=== PATIENT | male | born 1965 | race African-American/Black ===

== ENCOUNTER 2017-03-20 09:13 | Emergency (ER) | payer OTHER ==
[~2017-03-20] VITALS: Ht 185.4 cm; Wt 145.1 kg
[2017-03-20 09:45] VITALS: BP 174/99
[2017-03-20] MEDS ORDERED: DIPHTH,PERTUSS(ACELL),TET TOX 0.5 ML DISP.SYRIN. VAX IM ONE (10:00)
--- NOTE | 2017-03-20 10:01 | PHYS DOC ---
Past Medical History Past Medical History: Hypertension Past Surgical History: No Surgical History Alcohol Use: Occasionally Drug Use: None Adult General Chief Complaint Chief Complaint: LACERATION/AVULSION HPI HPI Patient is a 52 year old medical presents with left medial ankle laceration and left great toe laceration. Patient states he was moving a glass that fell down, broke cutting him. Patient states his tetanus is not up-to-date. Review of Systems Review of Systems Constitutional: Denies fever or chills [] Eyes: Denies change in visual acuity, redness, or eye pain [] Musculoskeletal: Denies back pain or joint pain [] Integument: left medial ankle laceration and left great toe laceration Neurologic: Denies headache, focal weakness or sensory changes [] Endocrine: Denies polyuria or polydipsia [] Current Medications Current Medications Current Medications Medications (Trade) Dose Ordered Sig/Garry Start Time Stop Time Status Last Admin Dose Admin Diphtheria/ Tetanus/Acell Pertussis (Boostrix) 0.5 ml ONCE ONCE 03/20/17 10:00 03/20/17 10:01 DC Allergies Allergies Allergies Coded Allergies Type Severity Reaction Last Updated Verified No Known Drug Allergies 03/20/17 No Physical Exam Physical Exam Constitutional: Well developed, well nourished, no acute distress, non-toxic appearance. [] HENT: Normocephalic, atraumatic, bilateral external ears normal, oropharynx moist, no oral exudates, nose normal. [] Skin: Left medial ankle with a superficial laceration approximately 0.5 cm. It is no obvious tendon involvement. Neurovascular exam normal on the left ankle. Left lateral great toe with a superficial laceration approximately 2 cm long. There is no tendon involvement. Neurovascular exam normal the left great toe. Back: No tenderness, no CVA tenderness. [] Extremities: No tenderness, no cyanosis, no clubbing, ROM intact, no edema. [] Neurologic: Alert and oriented X 3, normal motor function, normal sensory function, no focal deficits noted. [] Psychologic: Affect normal, judgement normal, mood normal. [] Current Patient Data Vital Signs Vital Signs Date Time Temp Pulse Resp B/P (MAP) Pulse Ox O2 Delivery O2 Flow Rate FiO2 03/20/17 09:45 97.7 92 20 99 Room Air 97.7 EKG EKG [] Radiology/Procedures Radiology/Procedures [] Course & Med Decision Making Course & Med Decision Making Pertinent Labs and Imaging studies reviewed. (See chart for details) Patient is in the ED with superficial lacerations of the left great toe and left medial ankle. None of them needed suturing. Tetanus was updated. He was provided wound care instructions as well as return precautions. Dragon Disclaimer Dragon Disclaimer This electronic medical record was generated, in whole or in part, using a voice recognition dictation system. Departure Departure Impression: Primary Impression: Laceration of left ankle Additional Impression: Laceration of left great toe Disposition: HOME, SELF-CARE Condition: STABLE Referrals: NO PCP (PCP) Follow-up with your own doctor in one week Patient Instructions: Laceration Care, Adult Additional Instructions: You were seen for laceration of the left ankle and left great toe. Keep the areas clean and dry. Apply Neosporin to the area twice a day. Follow-up with your own doctor in 1-2 weeks. Monitor the area for signs and symptoms of infection including increased redness warmth or odor drainage from the area and return to the ED if they occur. Problem Qualifiers Primary Impression: Laceration of left ankle Encounter type: initial encounter Qualified Codes: S91.012A - Laceration without foreign body, left ankle, initial encounter Additional Impression: Laceration of left great toe Encounter type: initial encounter Damage to nail status: without damage Foreign body presence: unspecified Qualified Codes: S91.112A - Laceration without foreign body of left great toe without damage to nail, initial encounter BREANN LOWE APRN March 20, 2017 10:01
== END 2017-03-20 10:18 | disposition home or self-care (01) ==
LOC: ER 09:13
DX: S91.012A Laceration without foreign body, left ankle, initial encounter (principal); S91.112A Laceration without foreign body of left great toe without damage to nail, initial encounter; I10 Essential (primary) hypertension; W25.XXXA Contact with sharp glass, initial encounter; Y93.89 Activity, other specified; Y92.89 Other specified places as the place of occurrence of the external cause; Y99.8 Other external cause status
CPT/HCPCS: 90471; 90715; 99283-25

== ENCOUNTER 2017-08-20 14:55 | Emergency (ER) | payer OTHER ==
[~2017-08-20] VITALS: Ht 185.4 cm; Wt 142.9 kg
[2017-08-20 15:58] VITALS: BP 172/99
[2017-08-20] MEDS ORDERED: SULF1TAB24 PO (16:12)
[2017-08-20] MEDS ORDERED: MUPI15CR TP (16:12)
[2017-08-20] MEDS ORDERED: HYDR-971 PO (16:12)
--- NOTE | 2017-08-20 16:13 | PHYS DOC ---
Past Medical History Past Medical History: Hypertension Past Surgical History: No Surgical History Alcohol Use: Occasionally Drug Use: None Adult General Chief Complaint Chief Complaint: WOUND CHECK HPI HPI Patient is a 52 year old male with history of hypertension who presents today complaining of bilateral lower extremity wounds that began 5 days ago from what he believes was an insect bite. Patient states he was seen at urgent care and was started on cephalexin. Patient states he has not noted any improvement of the wound. Patient denies any fever. He has an appointment with his PCP on Wednesday next week. Review of Systems Review of Systems Constitutional: Denies fever or chills [] Musculoskeletal: Denies back pain or joint pain [] Integument: bilateral lower extremity wounds Neurologic: Denies headache, focal weakness or sensory changes [] Allergies Allergies Allergies Coded Allergies Type Severity Reaction Last Updated Verified No Known Drug Allergies 03/20/17 No Physical Exam Physical Exam Constitutional: Well developed, well nourished, no acute distress, non-toxic appearance. [] Skin: Warm, dry, left proximal miguel with an open wound approximately 2 x 2 centimeters with surrounding trace cellulitis, right sheen distal end 2 wounds, 1.5cmX1.5cm and 2X1 cm with surrounding trace cellulitis. +2 bilateral pedal pulses. Back: No tenderness, no CVA tenderness. [] Extremities: No tenderness, no cyanosis, no clubbing, ROM intact, no edema. [] Neurologic: Alert and oriented X 3, normal motor function, normal sensory function, no focal deficits noted. [] Psychologic: Affect normal, judgement normal, mood normal. [] EKG EKG [] Radiology/Procedures Radiology/Procedures [] Course & Med Decision Making Course & Med Decision Making Pertinent Labs and Imaging studies reviewed. (See chart for details) Patient has open wounds to the left lower extremity as well as right lower extremity from a possible insect bite. He was started on cephalexin with no improvement. He was switched to Bactrim and Bactroban ointment. His tetanus is up-to-date. He was instructed to keep the area clean and dry. He was provided return precautions. He has an appointment with his own doctor on Wednesday next week. Dragon Disclaimer Dragon Disclaimer This electronic medical record was generated, in whole or in part, using a voice recognition dictation system. Departure Departure Impression: Primary Impression: Cellulitis of both lower extremities Additional Impression: Infection of anterior lower leg Disposition: HOME, SELF-CARE Condition: STABLE Referrals: NO PCP (PCP) followup with your doctor next week Patient Instructions: Cellulitis, [id number], Wound Infection, [id number] Additional Instructions: You were seen with infection to bilateral lower extremities. We switched you from cephalexin to Bactrim and Bactroban ointment. Ensure you complete the Oral antibiotics. Keep the areas clean and dry. Follow-up with your doctor next week on Wednesday. Come back to the ED at any point symptoms worsen. Scripts Hydrocodone/Apap 5-325 (NORCO 5-325 TABLET) 1 Each Tablet 1-2 TAB PO Q4-6HRS, #20 TAB Prov: BREANN LOWE APRN 08/20/17 Sulfamethoxazole/Trimethoprim (BACTRIM DS TABLET) 1 Each Tablet 1 TAB PO BID, #20 TAB Prov: BREANN LOWE APRN 08/20/17 Mupirocin Calcium (BACTROBAN CREAM) 15 Gm Cream..g. 1 STONEY TP TID, #30 GM Prov: BREANN LOWE APRN 08/20/17 Problem Qualifiers BREANN LOWE APRN Aug 20, 2017 16:13
[2017-08-20] MEDS ORDERED: HYDROcodone/APAP 5/325MG 1 TAB TABLET PO ONE (16:30)
== END 2017-08-20 16:25 | disposition home or self-care (01) ==
LOC: ER 14:55
DX: L03.115 Cellulitis of right lower limb (principal); L03.116 Cellulitis of left lower limb; L08.89 Other specified local infections of the skin and subcutaneous tissue; I10 Essential (primary) hypertension
CPT/HCPCS: 99283

== ENCOUNTER → 2018-07-26 | Day surgery (SDC) | payer OTHER ==
[~2018-07-26] MED LIST: ATOR40TA59 PO; HYDR-971 PO; IV RINGERS,LACTATED 1000ML 1,000 ML IV SCH; LISI-338 PO; MUPI15CR TP; PRAV20TA2 PO; PROPOFOL 60 ML IV ONE; RANI150C PO; SULF1TAB24 PO
--- NOTE | 2018-07-26 10:31 | PDOC1 ---
HISTORY & PHYSICAL H&P Vikas Goodwin [id number] 1965 07/12/2018 02:00 PM 11/15 [facility] OUR PATIENTS COME FIRST [address] [place], [place] [id number] Ph. [phone] Patient: Vikas Goodwin Date of : 1965 Date: 07/12/2018 2:00 PM Visit Type: Consult This 53 year old male presents for Screening colonoscopy. History of Present Illness: 1. Screening colonoscopy No prior screening. Denies risk factors. Pertinent negatives include abdominal pain, change in bowel habits, change in stool caliber, constipation, decreased appetite, diarrhea, melena, nausea, rectal bleeding, vomiting, weight gain and weight loss. Additional information: No family history of colon cancer , No family history of Crohn's/colitis, No NSAID/ASA use and No prior colonoscopy. INTAKE COMMENTS: Intake Comments: patient states he is here for a colon screening PROBLEM LIST: Problem Description Onset Date Chronic Clinical Status Notes GERD 02/15/2017 Y HTN 02/15/2017 Y Varicose veins 02/15/2017 Y Obesity 02/15/2017 Y PAST MEDICAL/SURGICAL HISTORY (Detailed) Disease/disorder Onset Date Management Date Comments GERD Hypertension obesity surgery varicose veins varicose veins Diabetes Elevated lipids Family History (Detailed) Relationship Family Member Name Age at Condition Onset Age Cause of Father Renal disease N Mother Stroke N Social History: (Detailed) Preferred language is Swedish. MARITAL STATUS/FAMILY/SOCIAL SUPPORT Currently unknown. Tobacco use status: Occasional tobacco smoker. Smoking status: Light tobacco smoker. TOBACCO CESSATION INFORMATION Date Counseled By Order Status Description Code Tobacco Cessation Information 02/12/2017 Tee Telles Tobacco cessation counseling completed Tobacco cessation counseling TOBACCO/VAPING EXPOSURE There is passive smoke exposure. ALCOHOL There is a history of alcohol use. Type: Beer and liquor. consumed monthly. CAFFEINE The patient uses caffeine: coffee. LIFESTYLE Moderate activity level. Exercise includes walking. The patient reports there are no animals in the home. SLEEP PATTERNS Patient has no changes to sleep patterns. HOME ENVIRONMENT/SAFETY The home has smoke detectors. Carbon monoxide detector at home. Uses seat belts. Medications (active prior to today) Medication Name Sig Description Start Date Stop Date Refilled Rx Elsewhere pravastatin 20 mg tablet take 1 tablet by ORAL route every evening 05/25/2017 07/12/2018 N Silvadene 1 % topical cream apply by TOPICAL route 2 times every day to the affected area 09/14/2017 07/12/2018 N RANITIDINE 300 MG TABLET TAKE 1 TABLET BY ORAL ROUTE EVERY DAY AT BEDTIME 201707/12/2018 07/12/2018 N MAXZIDE 37.5 MG-25 MG TABLET TAKE 1 TABLET BY ORAL ROUTE EVERY DAY 05/05/201805/05/2018 N Medication Reconciliation Medications reconciled today. Medication Reviewed Adherence Medication Name Sig Desc Elsewhere Status taking as directed ranitidine 300 mg tablet TAKE 1 TABLET BY ORAL ROUTE EVERY DAY AT BEDTIME N Verified taking as directed lisinopril 5 mg tablet take 1 tablet by oral route every day N Verified Medications (Added, Continued or Stopped today) Start Date Medication Directions PRN Status PRN Reason Instruction Stop Date 07/12/2018 lisinopril 5 mg tablet take 1 tablet by oral route every day N 05/05/2018 MAXZIDE 37.5 MG-25 MG TABLET TAKE 1 TABLET BY ORAL ROUTE EVERY DAY N 07/12/2018 05/25/2017 pravastatin 20 mg tablet take 1 tablet by ORAL route every evening N 07/12/2018 07/12/2018 ranitidine 300 mg tablet TAKE 1 TABLET BY ORAL ROUTE EVERY DAY AT BEDTIME N 05/05/2018 RANITIDINE 300 MG TABLET TAKE 1 TABLET BY ORAL ROUTE EVERY DAY AT BEDTIME N 07/12/2018 09/14/2017 Silvadene 1 % topical cream apply by TOPICAL route 2 times every day to the affected area N 07/12/2018 Allergies: Ingredient Reaction (Severity) Medication Name Comment NO KNOWN ALLERGIES ORDERS: Status Lab Order Time Frame Comments ordered Referrals: Vascular Surgery. Dr. Dobbs. Location: [place]. Evaluate and treat ordered BMP -today ordered CBC w/diff -today ordered Urinalysis -today ordered Lipid Panel -today ordered Hepatic Function Panel -today ordered Hg A1C -today ordered PSA -today ordered TSH -today ordered Hemoglobin A1c -today ordered BMP -today ordered CBC w/diff -today completed ada diet ordered Hemoglobin A1c -today ordered Microalb/Creat Ratio, Randm Ur -today completed Activity counseling provided completed Smoking cessation counseling provided completed Dietary counseling provided ordered BMP -today ordered CBC w/diff -today ordered Urinalysis -today ordered Lipid Panel -today ordered Hepatic Function Panel -today ordered TSH -today ordered Vitamin D, 25-Hydroxy -today ordered PSA -today completed Avoid provocative foods: citrus, alcohol, coffee, chocolate, mints. completed Eat smaller meals, no eating three hours prior to bedtime. completed Elevate head of bed prior to sleep. ordered Colonoscopy, flexible; diagnostic -today ordered follow-up visit with Jamshid Skelton MD upon completion of work-up upon completion of work-up System Neg/Pos Details Constitutional Negative Chills, Fever, Malaise, Weight gain and Weight loss. ENMT Negative Sore throat. Eyes Negative Double vision. Respiratory Negative Dyspnea and Wheezing. Cardio Negative Chest pain and Irregular heartbeat/palpitations. GI Positive See HPI. GI Negative Abdominal pain, Change in bowel habits, Change in stool caliber, Constipation, Decreased appetite, Diarrhea, Melena, Nausea, See HPI, Rectal bleeding and Vomiting. Negative Dysuria and Hematuria. Endocrine Negative Cold intolerance and Heat intolerance. Psych Negative Anxiety. Integumentary Negative Hives and Rash. MS Negative Joint pain. Miguel/Lymph Negative Easy bleeding and Easy bruising. Allergic/Immuno Negative Food allergies. Vital Signs Time BP mm/Hg Pulse /min Resp /min Temp F Ht ft Ht in Ht cm Wt lb Wt kg BMI kg/ m2 BSA m2 O2 Sat% 1:46 PM 130/80 96 18 98.2 5.0 11.00 180.34 316.80 143.698 44.18 2.68 96 Measured By Time Measured by 1:46 PM Bethany Swygert PHYSICAL EXAM: Exam Findings Details Constitutional Normal Well developed. Eyes Normal Conjunctiva - Right: Normal, Left: Normal. Sclera - Right: Normal, Left: Normal. Nasopharynx Normal Lips/teeth/gums - Normal. Neck Exam Normal Inspection - Normal. Thyroid gland - Normal. Respiratory Normal Inspection - Normal. Auscultation - Normal. Cardiovascular Normal Regular rate and rhythm. No murmurs, gallops, or rubs. Abdomen Normal Inspection - Normal. Anterior palpation - No guarding. No abdominal tenderness. No hepatic enlargement. No spleen enlargement. No hernia. No ascites. Skin Normal Inspection - Normal. Extremity Normal No edema. Psychiatric Normal Orientation - Oriented to time, place, person & situation. Appropriate mood and affect. Assessment/Plan # Detail Type Description 1. Assessment Encounter for screening colonoscopy (Z12.11). Patient Plan schedule colonoscopy at [facility] Plan Orders Further diagnostic evaluations ordered today include(s) Colonoscopy , flexible; diagnostic to be performed today. He is to schedule a follow-up visit with Jamshid Skelton MD upon completion of work-up. Co-Sign Orders Order Ordering Provider Cosigned Name Cosigned Date Cosigner Comments Colonoscopy, flexible; diagnostic Jamshid Skelton 07/12/2018 follow-up visit with Jamshid Skelton MD upon completion of work-up Jamshid Skelton 07/12/2018 Active Patient Care Team Members Name Contact Agency Type Support Role Relationship Active Date Inactive Date Specialty Tee Telles MD Patient provider PCP Family Pract Provider: Costa KLEIN, Jamshid 07/12/2018 2:07 PM Tee Telles MD, Family Practice; Jacob López MD Internal Medicine; Sami Spain MD, Internal Medicine; Angela Skelton MD Internal Medicine; Jamshid Skelton MD, Gastroenterology; Beto Butterfield MD, Rheumatology, J. Stephanie FLYNN ------ 07/26/18 Patient seen and examined. No change in H&P. JAMSHID SKELTON MD Jul 26, 2018 10:31
[2018-07-26 11:43] VITALS: BP 173/93
== END | disposition home or self-care (01) ==
LOC: ENDOS 09:50 → EDSTATUS 11:00
PROVIDERS: ATTEND Internal Medicine Gastroenterology
DX: Z12.11 Encounter for screening for malignant neoplasm of colon (principal); I10 Essential (primary) hypertension; K21.9 Gastro-esophageal reflux disease without esophagitis; E66.9 Obesity, unspecified; E11.9 Type 2 diabetes mellitus without complications; Z82.3 Family history of stroke; Z84.1 Family history of disorders of kidney and ureter; F17.200 Nicotine dependence, unspecified, uncomplicated; Z72.89 Other problems related to lifestyle; Z79.899 Other long term (current) drug therapy; Z79.84 Long term (current) use of oral hypoglycemic drugs
CPT/HCPCS: 45378; J2704

== ENCOUNTER → 2019-07-31 | Outpatient (CLI) | payer SELFPAY ==
[2018-07-26 11:43] VITALS: BP 173/93
[~2019-07-31] MED LIST changes: +HYDR-3164 PO; -HYDR-971 PO; -IV RINGERS,LACTATED 1000ML 1,000 ML IV SCH; -PROPOFOL 60 ML IV ONE
--- NOTE | 2019-07-31 15:33 | CARD ---
MR#: [id number] Date of Study: 07/31/2019 Ordering Physician: BILL RUIZ, Referring Physician: BILL RUIZ, Tech: Flaca Maya [facility] [place] APPROVED REPORT EXAM: Two-dimensional and M-mode echocardiogram with Doppler and color Doppler. Other Information Quality : Technically LimitedHR: 90bpm Rhythm : NSRTechnically limited study due to body habitus. INDICATION Dyspnea 2D DIMENSIONS RVDd3.6 (2.9-3.5cm)Left Atrium(2D)3.6 (1.6-4.0cm) IVSd1.5 (0.7-1.1cm)Aortic Root(2D)3.2 (2.0-3.7cm) LVDd5.4 (3.9-5.9cm)LVOT Diameter2.4 (1.8-2.4cm) PWd1.3 (0.7-1.1cm)LVDs3.4 (2.5-4.0cm) FS (%) 36.0 %SV90.9 ml LVEF(%)65.1 (>50%) M-Mode DIMENSIONS Left Atrium(MM)3.44 (2.5-4.0cm)IVSd1.48 (0.7-1.1cm) Aortic Root2.98 (2.2-3.7cm)LVDd5.14 (4.0-5.6cm) PWd1.45 (0.7-1.1cm)FS (%) 29 % LVDs3.63 (2.0-3.8cm)ESV(Teich)55.6 ml LVEF(%)56 (>50%) Aortic Valve AoV Peak Bud.138.7cm/sAoV VTI23.5cm AO Peak GR.7.7mmHgLVOT Peak Bud.104.8cm/s AO Mean GR.4mmHgAVA (VMAX)3.28cm2 ELIZABETH (VTI)3.30cm2 Mitral Valve MV E Kdvmdjhu06.0cm/sMV DECEL [id number] MV A Ufcyrtcr24.1cm/sE/A Ratio0.9 Pulmonary Valve PV Peak Pxrqzfns86.4cm/s Tricuspid Valve TR P. Xaqrbfrt255et/sRAP [id number] TR Peak Gr.86tmSwRYIV53ymPs LEFT VENTRICLE The left ventricle is normal size. There is moderate concentric left ventricular hypertrophy. The lef t ventricular systolic function is normal. The Ejection Fraction is 60-65%. There is normal LV segmen jenna wall motion. Transmitral Doppler flow pattern is Grade I-abnormal relaxation pattern. RIGHT VENTRICLE The right ventricle is borderline dilated. There is normal right ventricular wall thickness. The righ t ventricular systolic function is normal. ATRIA The left atrium size is normal. The right atrium size is normal. The interatrial septum is intact wit h no evidence for an atrial septal defect or patent foramen ovale as noted on 2-D or Doppler imaging. AORTIC VALVE The aortic valve is normal in structure and function. The aortic valve is trileaflet. Doppler and Col or Flow revealed no significant aortic regurgitation. There is no significant aortic valvular stenosi s. There is no aortic valvular vegetation. MITRAL VALVE The mitral valve is normal in structure and function. There is no evidence of mitral valve prolapse. There is no mitral valve stenosis. Doppler and Color-flow revealed trace mitral regurgitation. TRICUSPID VALVE The tricuspid valve is normal in structure and function. Doppler and Color Flow revealed trace tricus pid regurgitation. The PA pressure was estimated at 28 mmHg. There is no tricuspid valve prolapse or vegetation. There is no tricuspid valve stenosis. PULMONIC VALVE The pulmonic valve is not well visualized. GREAT VESSELS The aortic root is normal in size. The ascending aorta is normal in size. The IVC is normal in size a nd collapses >50% with inspiration. PERICARDIAL EFFUSION There is no evidence of significant pericardial effusion. Critical Notification Critical Value: No <Conclusion> The left ventricular systolic function is normal. The Ejection Fraction is 60-65%. There is normal LV segmental wall motion. Transmitral Doppler flow pattern is Grade I-abnormal relaxation pattern. Trace mitral regurgitation. Trace tricuspid regurgitation. The PA pressure was estimated at 28 mmHg. There is no evidence of significant pericardial effusion. Signed by : Tito Landers, Electronically Approved : 07/31/2019 15:33:35
== END | disposition home or self-care (01) ==
LOC: ECHO 14:42
PROVIDERS: ATTEND Internal Medicine Pulmonary Disease
DX: I51.7 Cardiomegaly (principal)
CPT/HCPCS: 93306

== ENCOUNTER 2020-08-27 06:49 | Outpatient (CLI) | payer OTHER ==
[2020-08-27] VITALS (15 sets, daily range): BP systolic 133–173; BP diastolic 66–113
[~2020-08-27] VITALS: Ht 185.4 cm; Wt 133.8 kg
[~2020-08-27 06:49] MED LIST changes: +APIX5TAB PO; +ASPI-886 PO; +ATOR20TA58; +DIGO125T3 PO; +IPRA3AMP29 NEB; +LISI10TA2 PO; +LISI1TAB37; +METF-658; +METO50TA6 PO; +OMEP40CA45; +POTA20TA4 PO; +TORS20TA2 PO
[2020-08-27] MEDS ORDERED: IODIXANOL 320 MG/ML 100 ML VIAL. ONE (07:35)
[2020-08-27] MEDS ORDERED: LIDOCAINE 1% Multi-Dose 20 ML VIAL. ONE (07:36)
[2020-08-27] MEDS ORDERED: LISINOPRIL 10 MG TABLET PO ONE (08:00)
[2020-08-27] MEDS ORDERED: DIGOXIN 125 MCG TABLET. PO ONE (08:00)
[2020-08-27] MEDS ORDERED: METOPROLOL TART IMMED RELEASE 50 MG TABLET. PO ONE (08:00)
[2020-08-27 08:01] LABS: HEMATOCRIT 41.4 % (39.0-53.0); HEMOGLOBIN 13.3 g/dL (13.0-17.5); RED BLOOD COUNT 4.91 x10^6/uL (4.30-5.70); RED CELL DISTRIBUTION WIDTH 14.9 % (11.5-14.5); WHITE BLOOD COUNT 5.4 x10^3/uL (4.0-11.0)
[2020-08-27] MEDS ORDERED: fentaNYL PF VIAL 100 MCG/2 ML VIAL ONE ×2 (08:01→09:22)
[2020-08-27] MEDS ORDERED: MIDAZOLAM HCL/PF 2 MG/2 ML VIAL. ONE (08:01)
[2020-08-27 08:07] LABS: BLOOD UREA NITROGEN 11 mg/dL (8-26); CALCIUM 8.7 mg/dL (8.5-10.1); CARBON DIOXIDE 40 mmol/L (21-32); CHLORIDE 103 mmol/L (98-107); CREATININE 0.9 mg/dL (0.7-1.3); GFR 105.6; GLUCOSE 109 mg/dL (70-99); POTASSIUM 4.2 mmol/L (3.5-5.1); SODIUM 142 mmol/L (136-145)
[2020-08-27] MEDS ORDERED: HEPARIN for IV BOLUS 10,000 UNIT/10 ML VIAL. ONE (08:07)
[2020-08-27 08:11] LABS: PROTHROMBIN TIME PATIENT 14.4 SEC (11.7-14.0)
[2020-08-27] MEDS ORDERED: IODIXANOL 320 MG/ML 100 ML VIAL. IART ONE (08:45)
[2020-08-27] MEDS ORDERED: CONTRAST GIVEN. MC PRN (08:45)
[2020-08-27] MEDS ORDERED: MIDAZOLAM HCL/PF 2 MG/2 ML VIAL. IV ONE (08:45)
[2020-08-27] MEDS ORDERED: fentaNYL PF VIAL 100 MCG/2 ML VIAL IV ONE (08:45)
[2020-08-27] MEDS ORDERED: LIDOCAINE 1% Multi-Dose 20 ML VIAL. INJ ONE (08:45)
[2020-08-27] MEDS ORDERED: HEPARIN for IV BOLUS 10,000 UNIT/10 ML VIAL. IV ONE (09:15)
[2020-08-27] MEDS ORDERED: hydrALAZINE 20 MG/ML VIAL. ONE (09:54)
[2020-08-27] MEDS: hydrALAZINE 20 MG/ML VIAL. IVP PRN ×2 (09:54→10:12)
--- NOTE | 2020-08-27 10:17 | PDOC4 ---
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 Ultrasound-guided access left common femoral artery 2. Radiology supervision interpretation aortogram 3. Radiology supervision interpretation right lower extremity runoff #4 right anterior tibial artery balloon angioplasty Surgeon: Ilia Kessler MD vascular surgery Anesthesia Type: Conscious sedation under surgeon and RN supervision using intravenous fentanyl and Versed total 70 minutes Versed 1.5 mg fentanyl 150 mcg Blood Loss: Minimal Specimans Obtained: None Findings: 1. The aorta is widely patent without aneurysm or significant occlusive disease renal arteries patent on single AP view #2 bilateral common and external and internal iliac arteries body pain #3 bilateral common femoral and profunda femoral arteries widely patent #4 right superficial femoral artery and popliteal artery widely patent #5 below the knee the posterior tibial artery is patent and gives flow to the medial ankle and down to the foot, the peroneal artery is small with intermittent disease the anterior tibial artery occluded shortly after its origin and reconstitutes just above the ankle. The anterior tibial is the main flow to the area of the lateral miguel wound therefore we decided to intervene #6 after balloon angioplasty with a 3 x 200 balloon the NADIRA of the long occlusion is a recanalized with good flow to the foot Complications: None Operative Note: Patient was taken to the Generating Station Mechanic and placed supine on the table. The groins were prepped and draped in usual sterile fashion. An appropriate timeout was performed. Conscious sedation was induced under surgeon and RN supervision using intravenous fentanyl and Versed with all appropriate monitoring devices in place. Attention was directed to left groin with a left common femoral arteries fluoroscopically marked of the femoral head and examined with ultrasound. The vessels found to be widely patent and image of the vessels taken and saved for the medical record. Under real-time ultrasound guidance local anesthetic was injected in left groin and left common femoral artery was accessed in retrograde fashion using a micropuncture needle. This was used to pass a micropuncture w roberta into the iliac artery under fluoroscopic guidance and exchange the needle for a micropuncture sheath which backbled easily. This was used to introduce a Storq wire to the abdominal aorta and exchange the micropuncture sheath for a 5 [place] sheath which was aspirated flush the difficulty. These were used introduce a flush catheter the suprarenal abdominal aorta and aortogram was obtained. Cath was pulled back to the OR bifurcation and a pelvic angiogram was obtained. Cath was used to hook aortic bifurcation and a Glidewire and then the catheter advanced to the right common femoral artery. Right leg runoff was obtained. Good poor images of the vessels below the knee so the patient was given intravenous heparin the stroke wire was advanced to the popliteal artery and used to exchange the flush catheter for 135 cm angled 4 [place] Terumo catheter which was advanced popliteal artery. Additional selective angiograms below the knee were obtained. We decided to intervene. Further intravenous heparin was given and the Storq wire was passed in the popliteal artery. This was used to exchange the 5 [place] sheath for a 6 [place] 90 cm from the destination sheath passed up and over the bifurcation with the distal tip in the right popliteal artery. I used the sheath to introduce the 035 angled [place] cross catheter and use this with first a 0.014 Glidewire advantage then a 0.018 guidewire advantage track to try to cross the NADIRA occlusion. I was initially unable to and so we telescoped a 0.018 Terumo catheter through the 0.035 treadmill catheter and with the 0.018 Glidewire advantage track I was able to cross and reenter the true lumen dist ally. The 0.018 catheter was advanced into the distal true lumen and luminal placement was confirmed with angiography through the catheter tip. I then replaced the wire and used the wire to deliver a 3 x 200 angioplasty balloon and performed angioplasty of most of the anterior tibial artery with much improved flow, recanalization of the INDUSTRIAL CONTROLS TECHNICIAN and inline flow to the foot in the area of ulceration. The wire was removed. The sheath was pulled back to the aortic bifurcation and the torque wire was advanced into the aorta. This sheath was used to obtain access site angiogram and then the sheath was removed over the wire and the wire was used to deliver a 6 [place] Angio-Seal device which was deployed to the left femoral artery access site with excellent hemostasis. Patient was escorted home in stable condition. There are no complications he tolerated the procedure well throughout. JANETTE KESSLER MD Aug 27, 2020 10:17
[2020-08-27] MEDS ORDERED: ASPIRIN 325 MG TABLET PO ONE (10:30)
[2020-08-27] MEDS ORDERED: ASPIRIN CHEWABLE 81 MG TABLET. PO ONE (10:30)
--- NOTE | 2020-08-27 11:01 | DISCH ---
DISCHARGE INSTRUCTIONS Condition on Discharge Condition on Discharge: Stable Activity After Discharge Activity Instructions for Disc: No restrictions, Activity as tolerated Weight Bearing Status after Di: No restrictions Diet after Discharge Diet after Discharge: Cardiac, No Added Salt Checks after Discharge Checks after discharge: Check blood press - daily, Weigh Yourself Daily Contacting the after DC Call your doctor for: Concerns you may have Follow-Up Follow up with: call for follow up appointment in 2-[address] Newman [phone] MARII TORRES APRN Aug 27, 2020 11:01
[2020-08-27] MEDS ORDERED: ASPIRIN CHEWABLE 81 MG TABLET. ONE (12:33)
--- NOTE | 2020-08-27 13:50 | NUR ---
Discharge Note: RAFAEL BARRETO Discharge instructions and discharge home medications reviewed with Patient and a copy given. All questions have been answered and understanding verbalized. Patient ate lunch with no difficulties. The following instructions and handouts were given: Moderate sedation, groin site care, angioplasty, HTN, A Fib and managing high blood pressure. Discontinued lines and drains: Left AC PIV, dressing clean dry intact. Patient discharged to home with friend via wheelchair to private vehicle.
== END 2020-08-27 13:50 | disposition home or self-care (01) ==
LOC: CCL 06:49
PROVIDERS: ATTEND Surgery Vascular Surgery
DX: I70.291 Other atherosclerosis of native arteries of extremities, right leg (principal); E11.51 Type 2 diabetes mellitus with diabetic peripheral angiopathy without gangrene; L97.318 Non-pressure chronic ulcer of right ankle with other specified severity; L97.218 Non-pressure chronic ulcer of right calf with other specified severity; Z20.828 Contact with and (suspected) exposure to other viral communicable diseases; I11.0 Hypertensive heart disease with heart failure; I50.9 Heart failure, unspecified; E78.5 Hyperlipidemia, unspecified; I48.0 Paroxysmal atrial fibrillation; F17.210 Nicotine dependence, cigarettes, uncomplicated; E66.01 Morbid (severe) obesity due to excess calories; Z68.38 Body mass index [BMI] 38.0-38.9, adult; Z79.84 Long term (current) use of oral hypoglycemic drugs; Z79.899 Other long term (current) drug therapy; Z83.3 Family history of diabetes mellitus; Z82.49 Family history of ischemic heart disease and other diseases of the circulatory system
CPT/HCPCS: 36415; 37228; 75625; 75710; 76937; 80048; 85027; 85610; 87426; 99152; 99153; C1713; C1725; C1760; C1769; C1892; C1894; C9803; J0360; J1644; J2250; J3010; J3490; Q9967; U0003; G0269; C1771

== ENCOUNTER 2021-05-29 18:33 | Emergency (ER) | payer OTHER ==
[~2021-05-29] VITALS: Ht 185.4 cm; Wt 131.8 kg
[~2021-05-29 18:33] MED LIST changes: -LISI-338 PO; +LISI-517 PO; +LISI10TA16 PO; -LISI10TA2 PO; -OMEP40CA45; +OMEP40CA7
[2021-05-29] MEDS ORDERED: SULF1TAB23 PO (21:09)
--- NOTE | 2021-05-29 21:10 | PHYS DOC ---
Past Medical History Past Medical History: Hypertension, Other Additional Past Medical Histor: "pre diabetic" Past Surgical History: No Surgical History Smoking Status: Current Every Day Smoker Alcohol Use: Occasionally Drug Use: None General Adult EDM: Chief Complaint: WOUND CHECK HPI: HPI: Patient is a 56 year old male with a history of hypertension, PVD, who presents to the ED today complaining of a pressure ulcer wound on the left foot that opened up today. He states he does a job where he is on his feet for long hours and this opened up the wound. He states he has had a stent on the left lower extremity. He states he would like a note to be excused from work because he cannot be on his feet for long hours it will worsen the wound. Patient denies any fever. Denies any pus draining from the wound. Review of Systems: Review of Systems: Constitutional: Denies fever or chills. [] Eyes: Denies change in visual acuity. [] HENT: Denies nasal congestion or sore throat. [] Respiratory: Denies cough or shortness of breath. [] Cardiovascular: Denies chest pain or edema. [] GI: Denies abdominal pain, nausea, vomiting, bloody stools or diarrhea. [] : Denies dysuria. [] Musculoskeletal: Denies back pain or joint pain. [] Integument: Reports wound on the left foot Neurologic: Denies headache, focal weakness or sensory changes. [] ] Psychiatric: Denies depression or anxiety. [] Heart Score: C/O Chest Pain: N/A Risk Factors: Risk Factors: DM, Current or recent (<one month) smoker, HTN, HLP, family history of CAD, obesity. Risk Scores: Score 0 - 3: 2.5% MACE over next 6 weeks - Discharge Home Score 4 - 6: 20.3% MACE over next 6 weeks - Admit for Clinical Observation Score 7 - 10: 72.7% MACE over next 6 weeks - Early Invasive Strategies Allergies: Allergies: Allergies Coded Allergies Type Severity Reaction Last Updated Verified No Known Drug Allergies 05/29/21 No Physical Exam: PE: Constitutional: Well developed, well nourished, no acute distress, non-toxic appearance. [] HENT: Normocephalic, atraumatic, bilateral external ears normal, oropharynx moist, no oral exudates, nose normal. [] Eyes: PERRLA, EOMI, conjunctiva normal, no discharge. [] Neck: Normal range of motion, no tenderness, supple, no stridor. [] Cardiovascular:Heart rate regular rhythm, no murmur [] Lungs & Thorax: Bilateral breath sounds clear to auscultation [] Abdomen: Bowel sounds normal, soft, no tenderness, no masses, no pulsatile masses. [] Skin: Left lateral foot has an open wound roughly 1 x 1 cm. This appears to be an older wound that just opened up. There is no pus draining. There is no redness, there is no warmth to the area. +2 left pedal pulse. Negative Homans' sign to the left foot. Back: No tenderness, no CVA tenderness. [] Extremities: No tenderness, no cyanosis, no clubbing, ROM intact, no edema. [] Neurologic: Alert and oriented X 3, normal motor function, normal sensory function, no focal deficits noted. [] Psychologic: Affect normal, judgement normal, mood normal. [] Current Patient Data: Vital Signs: Vital Signs Date Time Temp Pulse Resp B/P (MAP) Pulse Ox O2 Delivery O2 Flow Rate FiO2 05/29/21 20:20 98.1 101 22 185/95 (122) 94 Room Air 98.1 EKG: EKG: [] Radiology/Procedures: Radiology/Procedures: [] Course & Med Decision Making: Course & Med Decision Making Pertinent Labs and Imaging studies reviewed. (See chart for details) This is a 56-year-old male patient who presents to the ED today complaining of a pressure ulcer wound from his shoes that opened up today. The area does not appear infected but we will still put him on antibiotic prophylaxis. I recommended he follows up with the wound clinic. Provided him the contact information. He requested a note for work which was provided. Tetanus was updated. Genie Disclaimer: Genie Disclaimer: This electronic medical record was generated, in whole or in part, using a voice recognition dictation system. Departure Departure Impression: Primary Impression: Wound of left foot Disposition: HOME / SELF CARE / HOMELESS Condition: STABLE Referrals: LÓPEZ RUCKER MD (PCP) follow up in one week PATEL PHILLIPS MD Please call tomorrow and set up a follow up appointment for wound care Patient Instructions: Wound Check Additional Instructions: You have a wound on the left foot, we highly recommend you contact [facility] tomorrow and set up a follow-up appointment. Please keep the area clean and dry. Please take the antibiotics prescribed until completed. Scripts Sulfamethoxazole/Trimethoprim (BACTRIM 400-80 MG TABLET) 1 Each Tablet 1 TAB PO BID for 10 Days, #20 TAB 0 Refills Prov: BREANN LOWE APRN 05/29/21 BREANN LOWE APRN May 29, 2021 21:10
[2021-05-29 21:17] VITALS: BP 185/103
[2021-05-29] MEDS ORDERED: DIPH,PERTUSS(ACELL),TET VAC/PF 0.5 ML SYRINGE. VAX IM ONE (21:30)
[2021-05-29] MEDS ORDERED: SMZ/TMP 800/160MG TABLET. PO ONE (21:30)
== END 2021-05-29 21:53 | disposition home or self-care (01) ==
LOC: ER 18:33
DX: L89.629 Pressure ulcer of left heel, unspecified stage (principal); I10 Essential (primary) hypertension; I73.9 Peripheral vascular disease, unspecified; F17.200 Nicotine dependence, unspecified, uncomplicated
CPT/HCPCS: 90471; 90715; 99284

== ENCOUNTER 2022-03-11 14:42 | Emergency (ER) | payer BC, MEDICARE ==
[~2022-03-11] VITALS: Ht 185.4 cm; Wt 131.8 kg
[~2022-03-11 14:42] MED LIST changes: -LISI-517 PO; +LISI5TAB15 PO; +POTA-121 PO; -POTA20TA4 PO; +SULF1TAB23 PO
[2022-03-11] MEDS ORDERED: MORPHINE SULFATE 4 MG/ML INJ. IV/SQ PRN (15:30)
[2022-03-11 16:00] LABS: BASO % 0 % (0-3); EOS # 0.2 x10^3/uL (0.0-0.7); EOS % 4 % (0-3); HEMATOCRIT 38.2 % (39.0-53.0); HEMOGLOBIN 12.6 g/dL (13.0-17.5); LYMPH # 0.3 x10^3/uL (1.0-4.8); LYMPH % 8 % (24-48); MEAN CORPUSCULAR HEMOGLOBIN 28 pg (25-35); MEAN CORPUSCULAR HGB CONC 33 g/dL (31-37); MEAN CORPUSCULAR VOLUME 84 fL (79-100); MONO # 0.3 x10^3/uL (0.0-1.1); MONO % 7 % (0-9); NEUT # 3.6 x10^3/uL (1.8-7.7); NEUT % 81 % (31-73); PLATELET COUNT 128 x10^3/uL (140-400); RED BLOOD COUNT 4.56 x10^6/uL (4.30-5.70); RED CELL DISTRIBUTION WIDTH 15.2 % (11.5-14.5); WHITE BLOOD COUNT 4.4 x10^3/uL (4.0-11.0)
[2022-03-11 16:08] LABS: CALCIUM 8.9 mg/dL (8.5-10.1); CREATININE 0.9 mg/dL (0.7-1.3); GFR 104.9; POTASSIUM 3.7 mmol/L (3.5-5.1)
--- NOTE | 2022-03-11 16:12 | RAD ---
EXAM: Wound to right foot views of the right foot DATE: 03/11/2022 3:32 PM INDICATION: Reason: wound to the right foot / Spl. Instructions: / History: COMPARISON: No Prior FINDINGS: No acute fracture or dislocation. No bone erosion or periosteal reaction. Joint spaces are preserved with significant mild to moderate scattered degenerative/proliferative change. Small focus of gas joseph ng the lateral aspect of the foot. No radiopaque soft tissue foreign bodies. IMPRESSION: Soft tissue wound along the lateral aspect of the midfoot with no radiographic evidence of acute or s uspicious osseous injury. Electronically signed by: Emerson Villarreal DO (03/11/2022 4:10 PM) [facility]
[2022-03-11 16:15] LABS: ALBUMIN 2.7 g/dL (3.4-5.0); ALBUMIN/GLOBULIN RATIO 0.5 (1.0-1.7); TOTAL BILIRUBIN 0.8 mg/dL (0.2-1.0); TOTAL PROTEIN 8.1 g/dL (6.4-8.2)
[2022-03-11 16:59] LABS: % EOS 5 % (0-5); % LYMPHS 12 % (24-48); % MONOS 4 % (0-10); % SEGS 79 % (35-66); PLT ESTIMATE ADEQUATE (ADEQUATE)
--- NOTE | 2022-03-11 18:20 | PHYS DOC ---
Past Medical History Past Medical History: Hypertension, Other Additional Past Medical Histor: "pre diabetic" Past Surgical History: No Surgical History Smoking Status: Never Smoker Alcohol Use: None Drug Use: None General Adult EDM: Chief Complaint: FOOT INJURY PAIN HPI: HPI: Patient is a 57 year old male with history of prediabetes, hypertension presenting to the ED today to be evaluated for left foot diabetic foot ulcer that is chronic. Patient states he has been following up with the PCP as well as the wound clinic. He states he resumed work recently after being off for months and today the wound opened up. Denies any fever, nausea, vomiting. Review of Systems: Review of Systems: Constitutional: Denies fever or chills. [] Eyes: Denies change in visual acuity. [] HENT: Denies nasal congestion or sore throat. [] Respiratory: Denies cough or shortness of breath. [] Cardiovascular: Denies chest pain or edema. [] GI: Denies abdominal pain, nausea, vomiting, bloody stools or diarrhea. [] : Denies dysuria. [] Musculoskeletal: Denies back pain or joint pain. [] Integument: Reports diabetic foot ulcer Neurologic: Denies headache, focal weakness or sensory changes. [] Psychiatric: Denies depression or anxiety. [] Heart Score: C/O Chest Pain: N/A Risk Factors: Risk Factors: DM, Current or recent (<one month) smoker, HTN, HLP, family history of CAD, obesity. Risk Scores: Score 0 - 3: 2.5% MACE over next 6 weeks - Discharge Home Score 4 - 6: 20.3% MACE over next 6 weeks - Admit for Clinical Observation Score 7 - 10: 72.7% MACE over next 6 weeks - Early Invasive Strategies Current Medications: Current Medications Medications (Trade) Dose Ordered Sig/Garry Start Time Stop Time Status Last Admin Dose Admin Morphine Sulfate (Morphine Sulfate) 4 mg PRN Q15MIN PRN 03/11/22 15:30 03/12/22 15:29 Allergies: Allergies: Allergies Coded Allergies Type Severity Reaction Last Updated Verified No Known Drug Allergies 05/29/21 No Physical Exam: PE: Constitutional: Well developed, well nourished, no acute distress, non-toxic appearance. [] HENT: Normocephalic, atraumatic, bilateral external ears normal, oropharynx moist, no oral exudates, nose normal. [] Eyes: PERRLA, EOMI, conjunctiva normal, no discharge. [] Neck: Normal range of motion, no tenderness, supple, no stridor. [] Cardiovascular:Heart rate regular rhythm Lungs & Thorax: Bilateral breath sounds clear to auscultation [] Abdomen: Bowel sounds normal, soft, no tenderness, no masses, no pulsatile masses. [] Skin: Left foot along the base of the fifth metatarsal with an open wound roughly 0.5 x 0.5 cm with trace fresh bright red blood, no purulent drainage. +2 left pedal pulse. Cap refill less than 2 seconds to left toes. Range of motion intact to the left foot and toes. Back: No tenderness, no CVA tenderness. [] Extremities: No tenderness, no cyanosis, no clubbing, ROM intact, no edema. [] Neurologic: Alert and oriented X 3, normal motor function, normal sensory function, no focal deficits noted. [] Psychologic: Affect normal, judgement normal, mood normal. [] Current Patient Data: Labs: Laboratory Tests Test 03/11/22 13:46 White Blood Count 4.4 x10^3/uL (4.0-11.0) Red Blood Count 4.56 x10^6/uL (4.30-5.70) Hemoglobin 12.6 g/dL (13.0-17.5) L Hematocrit 38.2 % (39.0-53.0) L Mean Corpuscular Volume 84 fL (79-100) Mean Corpuscular Hemoglobin 28 pg (25-35) Mean Corpuscular Hemoglobin Concent 33 g/dL (31-37) Red Cell Distribution Width 15.2 % (11.5-14.5) H Platelet Count 128 x10^3/uL (140-400) L Neutrophils (%) (Auto) 81 % (31-73) H Lymphocytes (%) (Auto) 8 % (24-48) L Monocytes (%) (Auto) 7 % (0-9) Eosinophils (%) (Auto) 4 % (0-3) H Basophils (%) (Auto) 0 % (0-3) Neutrophils # (Auto) 3.6 x10^3/uL (1.8-7.7) Lymphocytes # (Auto) 0.3 x10^3/uL (1.0-4.8) L Monocytes # (Auto) 0.3 x10^3/uL (0.0-1.1) Eosinophils # (Auto) 0.2 x10^3/uL (0.0-0.7) Basophils # (Auto) 0.0 x10^3/uL (0.0-0.2) Segmented Neutrophils % 79 % (35-66) H Lymphocytes % 12 % (24-48) L Monocytes % 4 % (0-10) Eosinophils % 5 % (0-5) Platelet Estimate Adequate (ADEQUATE) Sodium Level 136 mmol/L (136-145) Potassium Level 3.7 mmol/L (3.5-5.1) Chloride Level 100 mmol/L (98-107) Carbon Dioxide Level 35 mmol/L (21-32) H Anion Gap 1 (6-14) L Blood Urea Nitrogen 14 mg/dL (8-26) Creatinine 0.9 mg/dL (0.7-1.3) Estimated GFR (Cockcroft-Gault) 104.9 BUN/Creatinine Ratio 16 (6-20) Glucose Level 115 mg/dL (70-99) H Lactic Acid Level 1.0 mmol/L (0.4-2.0) Calcium Level 8.9 mg/dL (8.5-10.1) Total Bilirubin 0.8 mg/dL (0.2-1.0) Aspartate Amino Transferase (AST) 36 U/L (15-37) Alanine Aminotransferase (ALT) 29 U/L (16-63) Alkaline Phosphatase 137 U/L (46-116) H Total Protein 8.1 g/dL (6.4-8.2) Albumin 2.7 g/dL (3.4-5.0) L Albumin/Globulin Ratio 0.5 (1.0-1.7) L Procalcitonin < 0.10 ng/mL (0.00-0.10) Laboratory Tests 03/11/22 13:46 Laboratory Tests 03/11/22 13:46 Vital Signs: Vital Signs Date Time Temp Pulse Resp B/P (MAP) Pulse Ox O2 Delivery O2 Flow Rate FiO2 03/11/22 16:47 91 24 191/109 (136) 92 03/11/22 14:52 98.0 Room Air 98.0 EKG: EKG: [] Radiology/Procedures: Radiology/Procedures: []PROCEDURE: FOOT RIGHT 3V EXAM: Wound to right foot views of the right foot DATE: 03/11/2022 3:32 PM INDICATION: Reason: wound to the right foot / Spl. Instructions: / History: COMPARISON: No Prior FINDINGS: No acute fracture or dislocation. No bone erosion or periosteal reaction. Joint spaces are preserved with significant mild to moderate scattered degenerative/proliferative change. Small focus of gas along the lateral aspect of the foot. No radiopaque soft tissue foreign bodies. IMPRESSION: Soft tissue wound along the lateral aspect of the midfoot with no radiographic evidence of acute or suspicious osseous injury. Electronically signed by: Jose Bermudez DO (03/11/2022 4:10 PM) [facility] DICTATED and SIGNED BY: JOSE BERMUDEZ DO DATE: 03/11/22 160 Course & Med Decision Making: Course & Med Decision Making Pertinent Labs and Imaging studies reviewed. (See chart for details) This a 57-year-old male patient presenting to the ED today with left foot ulcer. Patient has had this ulcer for months. He follows up with the PCP in the wound clinic. He states the area opened up today. CBC CMP with no acute findings, lactic is normal. Patient is afebrile. Left foot x-rays noted for soft tissue wound along the lateral aspect of the midfoot with no radiographic evidence of acute or suspicious osseous injury. Patient has very good follow-up with his own PCP and the wound clinic. He was discharged to home Genie Disclaimer: Genie Disclaimer: This electronic medical record was generated, in whole or in part, using a voice recognition dictation system. Departure Departure Impression: Primary Impression: Wound of left foot Disposition: 01 HOME / SELF CARE / HOMELESS Condition: STABLE Referrals: LÓPEZ RUCKER MD (PCP) Follow-up in the course of this week Patient Instructions: Wound Check Additional Instructions: You were evaluated in the emergency room for left foot wound. Your work-up in the emergency room is negative for any acute findings, please continue following up with your primary care doctor as well as the wound clinic BREANN LOWE APRN Mar 11, 2022 18:20
[2022-03-11 18:39] VITALS: BP 178/93
== END 2022-03-11 18:40 | disposition home or self-care (01) ==
LOC: ER 14:42
DX: E11.621 Type 2 diabetes mellitus with foot ulcer (principal); I10 Essential (primary) hypertension
CPT/HCPCS: 36415; 73630; 80053; 83605; 84145; 85007; 85025; 87040; 87071; 99284-25